=== PATIENT | female | born 1985 ===

== ENCOUNTER 2016-10-06 18:01 | Emergency (ER) | payer BC ==
[2016-10-06 18:05] VITALS: TEMP 98.7
--- NOTE | 2016-10-06 18:59 | C.PDOC ---
History Of Present Illness 31 yr old female presents to the ER with complaints of neck and upper back pain gradually developing for 1 week after sustaining a mechanical fall. Patient states she slipped down 10 steps. Reports the pain is constant over back of neck , aching, pressure like and extend to the occipital area of head. Patient denies LOC, syncope, vision changes, nausea, vomiting, headache, dizziness, CP, SOB, abd. pain, denies weakness, deformity, sensory or vascular deficits to B/L UEs and LEs. Ambulate to Ed for evaluation, not in any apparent distress. Time Seen by Provider: 10/06/16 18:28 Chief Complaint (Nursing): Back Pain History Per: Patient History/Exam Limitations: no limitations Onset/Duration Of Symptoms: Gradual (1 week) Past Medical History Reviewed: Historical Data, Nursing Documentation, Vital Signs Vital Signs: Last Vital Signs Temp 98.7 F 10/06/16 18:03 Pulse 84 10/06/16 19:36 Resp 16 10/06/16 19:36 BP 132/70 10/06/16 19:36 Pulse Ox 100 10/06/16 19:44 Family History: States: No Known Family Hx - Social History Hx Alcohol Use: No Hx Substance Use: No Review Of Systems Except As Marked, All Systems Reviewed And Found Negative. Eyes: Negative for: Vision Change Gastrointestinal: Negative for: Nausea, Vomiting Musculoskeletal: Positive for: Neck Pain, Back Pain (Upper ) Neurological: Negative for: Weakness, Numbness, Headache Physical Exam - Physical Exam Appears: Well, Non-toxic, No Acute Distress Skin: Normal Color, Warm, Dry Head: Atraumatic, Normacephalic Eye(s): bilateral: PERRL Ear(s): Bilateral: Normal Nose: No Deformity, No Tenderness Oral Mucosa: Moist, No Drooling Tongue: Normal Appearing Lips: Normal Appearing Throat: Normal Neck: Normal ROM, Trachea Midline, No Midline Cervical Tenderness, Paracervical Tenderness (diffuse mild tenderness. No palpable step offs.), No Step Off Deformity, Supple Chest: Symmetrical, No Deformity, No Tenderness Gastrointestinal/Abdominal: Soft, No Tenderness, No Distention, No Guarding Back: No CVA Tenderness, No Vertebral Tenderness, Paraspinal Tenderness (mild thoracic, no midline tenderness.) Extremity: Normal ROM, No Tenderness, No Pedal Edema, No Deformity Neurological/Psych: Oriented x3, Normal Speech, Normal Motor, Normal Sensation, Normal Reflexes ED Course And Treatment O2 Sat by Pulse Oximetry: 100 (RA) Pulse Ox Interpretation: Normal - Radiology CXR: Interpreted by Me, Viewed By Me CXR Interpretation: Yes: No Acute Disease - Other Rad X-Ray - Cervical Spine X-Ray: Viewed By Me Interpretation: (-) acute fx or sublux Progress Note: On re-evaluation, pt is afebrile, hemodynamicaly stable. non- toxic. Tolerate po well in ED. PulseOx 100% RA. head: AT/NC. ENT: no acute findings. Neck: supple, (-) midline tenderness. NO palpable step off. Lugs: CTA B/L, BS equal B/L. neuorlogicaly intact. Imaging review and appears without acute abnormalities. Pt has clinical findings c/w cervical strain, back contusion, head injury. Pt advised OBS on any sign of head injury-reutrn if any new changes. Parent advised and ref. to f/U with PMD in 1-2 days for re- evaluation. return to ED if any worsening or new changes. Medical Decision Making Medical Decision Making: PLAN: * X-Ray - Cervical Spine * CXR * Motrin PO Disposition Counseled Patient/Family Regarding: Studies Performed, Diagnosis, Need For Followup, Rx Given - Disposition Referrals: [facility] [Outside] Disposition: HOME/ ROUTINE Disposition Time: 19:10 Condition: STABLE Additional Instructions: LIght duty, avoid physical activity for 1 week take medication as need Follow up with PMD in 2-3 days for re-evaluation. Return to ED if any worsening or new changes. 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 - Scribe Statement The provider has reviewed the documentation as recorded by the Scribe Geovanna Soares All medical record entries made by the Scribe were at my direction and personally dictated by me. I have reviewed the chart and agree that the record accurately reflects my personal performance of the history, physical exam, medical decision making, and the department course for this patient. I have also personally directed, reviewed, and agree with the discharge instructions and disposition.
[2016-10-06 19:37] VITALS: BP 132/70; PULSE 84; RESP 16
[2016-10-06 19:42] VITALS: O2SAT 100
--- NOTE | 2016-10-07 09:15 | RAD ---
HISTORY: pain COMPARISON: None available. TECHNIQUE: Chest PA and lateral FINDINGS: LUNGS: No focal consolidation. Please note that chest x-ray has limited sensitivity for the detection of pulmonary masses. PLEURA: No significant pleural effusion identified. No definite pneumothorax . CARDIOVASCULAR: The cardiomediastinal silhouette appears within normal limits of size. OSSEOUS STRUCTURES: No acute osseous abnormality identified. VISUALIZED UPPER ABDOMEN: Unremarkable. OTHER FINDINGS: None. IMPRESSION: No focal consolidation, significant pleural effusion, or definite pneumothorax identified.
--- NOTE | 2016-10-07 11:07 | RAD ---
PROCEDURE: Cervical Spine Radiographs. HISTORY: Pain. COMPARISON: None. FINDINGS: BONES: Alignment maintained. No fracture. Dens Intact. DISC SPACES: Normal. SOFT TISSUES: Normal. No prevertebral soft tissue swelling. OTHER FINDINGS: None. IMPRESSION: Unremarkable cervical spine radiographs Concordant results with the preliminary interpretation rendered by the emergency department physician procedure.
== END 2016-10-06 19:36 | disposition home or self-care (01) ==
LOC: C.ER 18:01
DX: S16.1XXA Strain of muscle, fascia and tendon at neck level, initial encounter (principal); S23.3XXA Sprain of ligaments of thoracic spine, initial encounter; W10.9XXA Fall (on) (from) unspecified stairs and steps, initial encounter